=== PATIENT | male | born 1985 | race Caucasian/White ===

== ENCOUNTER 2020-08-07 12:13 | Day surgery (SDC) | payer OTHER ==
[~2020-08-07] VITALS: Ht 175.3 cm; Wt 92.5 kg
[~2020-08-07 12:13] MED LIST: NS 1,000 ML IV ONE; OMEP1CAP73 PO
[2020-08-07] MEDS ORDERED: fentaNYL 100 MCG/2 ML INJECTION (J3010) As Ordered ONE (13:28)
[2020-08-07] MEDS ORDERED: propofoL 200 MG/20 ML VIAL As Ordered ONE ×2 (13:29→13:55)
[2020-08-07] MEDS ORDERED: LIDOCAINE 2% 100MG/5ML SDV (FOR ANES.) As Ordered ONE (13:55)
--- NOTE | 2020-08-07 14:22 | ROOR ---
Patient Name: Musa Beyer Procedure Date: 08/07/2020 1:44 PM Date of : 1985 Age: 34 Room: [facility] Gender: Male Note Status: Finalized Procedure: Upper GI endoscopy Indications: Heartburn, Suspected gastro-esophageal reflux disease Providers: Slim Ramos MD Referring MD: AUDIE BRONSON MD Requesting Provider: Medicines: Monitored Anesthesia Care Complications: No immediate complications. Procedure: Pre-Anesthesia Assessment: - Prior to the procedure, a History and Physical was performed, and patient medications and allergies were reviewed. The patient is competent. The risks and benefits of the procedure and the sedation options and risks were discussed with the patient. All questions were answered and informed consent was obtained. Patient identification and proposed procedure were verified by the physician, the nurse and the anesthesiologist in the procedure room. Mental Status Examination: alert and oriented. Airway Examination: normal oropharyngeal airway and neck mobility. Respiratory Examination: clear to auscultation. CV Examination: normal. Prophylactic Antibiotics: The patient does not require prophylactic antibiotics. Prior Anticoagulants: The patient has taken no previous anticoagulant or antiplatelet agents. ASA Grade Assessment: II - A patient with mild systemic disease. After reviewing the risks and benefits, the patient was deemed in satisfactory condition to undergo the procedure. The anesthesia plan was to use monitored anesthesia care (MAC). Immediately prior to administration of medications, the patient was re-assessed for adequacy to receive sedatives. The heart rate, respiratory rate, oxygen saturations, blood pressure, adequacy of pulmonary ventilation, and response to care were monitored throughout the procedure. The physical status of the patient was re-assessed after the procedure. The Endoscope was introduced through the mouth, and advanced to the second part of duodenum. The upper GI endoscopy was accomplished without difficulty. The patient tolerated the procedure well. Findings: The examined esophagus was normal. The Z-line was regular and was found 42 cm from the incisors. Scattered mild inflammation characterized by erythema and granularity was found in the gastric antrum. Biopsies were taken with a cold forceps for Helicobacter pylori testing. Verification of patient identification for the specimen was done by the physician and nurse using the patient's name, date and medical record number. Estimated blood loss was minimal. The duodenal bulb and second portion of the duodenum were normal. The DAMNO capsule with delivery system was introduced through the mouth and advanced into the esophagus, such that the DAMON pH capsule was positioned 36 cm from the incisors, which was 6 cm proximal to the GE junction. Suction was applied to the well of the DAMON pH capsule to suck in the adjacent mucosa of the esophagus using the external vacuum pump set at a minimum vacuum pressure of 550 mmHg for 30 seconds. The DAMON pH capsule was then deployed by depressing the plunger on top of the handle to advance the locking pin into the mucosa, thereby attaching the capsule to the esophagus. The plunger was then rotated a quarter turn clockwise to release the capsule from the delivery system. The delivery system was then withdrawn. Endoscopy was utilized for probe placement and diagnostic evaluation. The scope was reinserted to evaluate placement of the DAMON capsule. Visualization showed the DAMON capsule to be in an appropriate position. Impression: - Normal esophagus. - Z-line regular, 42 cm from the incisors. - Gastritis. Biopsied. - Normal duodenal bulb and second portion of the duodenum. - The DAMON pH capsule was positioned 36 cm from the incisors, which was 6 cm proximal to the GE junction. Recommendation: - Patient has a contact number available for emergencies. The signs and symptoms of potential delayed complications were discussed with the patient. Return to normal activities tomorrow. Written discharge instructions were provided to the patient. - High fiber diet. - Continue present medications. - Await pathology results. - Follow an antireflux regimen. - Return to GI clinic in [facility] (address [address], [address], [place], [facility]) in 4 -- 6 weeks. Please call GI clinic @ [phone] for apppointment date and time. - Return to primary care physician. Procedure Code(s): --- Professional --- 94702, Esophagogastroduodenoscopy, flexible, transoral; with biopsy, single or multiple Diagnosis Code(s): --- Professional --- K29.70, Gastritis, unspecified, without bleeding R12, Heartburn CPT copyright 2019 [employer]. All rights reserved. The codes documented in this report are preliminary and upon precision agriculture technician review may be revised to meet current compliance requirements. Slim Ramos MD Slim Ramos MD 08/07/2020 2:21:53 PM Electronically signed by Slim Ramos MD Number of Addenda: 0 Note Initiated On: 08/07/2020 1:44 PM Estimated Blood Loss: Estimated blood loss was minimal.
[2020-08-07 14:45] VITALS: BP 125/71
== END 2020-08-07 15:04 | disposition home or self-care (01) ==
LOC: M OPP 12:13
PROVIDERS: ATTEND Internal Medicine Gastroenterology
DX: R12 Heartburn (principal); K92.0 Hematemesis; D13.1 Benign neoplasm of stomach; K29.70 Gastritis, unspecified, without bleeding; K21.9 Gastro-esophageal reflux disease without esophagitis; Z79.899 Other long term (current) drug therapy; Z80.8 Family history of malignant neoplasm of other organs or systems
CPT/HCPCS: 43239; 88305; J3010

== ENCOUNTER 2020-09-06 18:14 | Emergency (ER) | payer OTHER ==
[~2020-09-06] VITALS: Ht 175.3 cm; Wt 95.3 kg
[~2020-09-06 18:14] MED LIST changes: -NS 1,000 ML IV ONE
[2020-09-06] MEDS ORDERED: AMIT25TA17 PO (18:24)
[2020-09-06] MEDS ORDERED: OMEP-218 (18:24)
[2020-09-06] MEDS ORDERED: CARA1TAB6 PO (18:24)
--- NOTE | 2020-09-06 20:50 | REPVR ---
PROCEDURE INFORMATION: Exam: XR Left Elbow Exam date and time: 09/06/2020 6:40 PM Age: 34 years old Clinical indication: Other: Fall, injury; Additional info: Fall. Injury TECHNIQUE: Imaging protocol: XR Left elbow. Views: 3 or more views. COMPARISON: No relevant prior studies available. FINDINGS: Bones/joints: Normal. Soft tissues: Normal. IMPRESSION: No acute findings. Electronically signed by: Tomasz Hilliard On 09/06/2020 20:50:10 PM
[2020-09-06 21:05] VITALS: BP 138/90
== END 2020-09-06 21:08 | disposition home or self-care (01) ==
LOC: M ED 18:14
DX: S50.02XA Contusion of left elbow, initial encounter (principal); S60.512A Abrasion of left hand, initial encounter; W19.XXXA Unspecified fall, initial encounter; Y92.410 Unspecified street and highway as the place of occurrence of the external cause; Y93.51 Activity, roller skating (inline) and skateboarding; Y99.9 Unspecified external cause status; K21.9 Gastro-esophageal reflux disease without esophagitis

== ENCOUNTER 2020-11-02 16:45 | Emergency (ER) | payer OTHER ==
[~2020-11-02] VITALS: Ht 175.3 cm; Wt 93.6 kg
[~2020-11-02 16:45] MED LIST changes: +AMIT25TA17 PO; +CARA1TAB6 PO; +OMEP-218
--- NOTE | 2020-11-02 17:48 | REP ---
INDICATION: fall, injury, pain COMPARISON: 09/06/2020. TECHNIQUE: Five views left elbow. FINDINGS: There is a nondisplaced fracture of the distal 3rd of the humerus which extends through the intercondylar region into the elbow joint. There is nondisplaced fracture of the neck of the radius. There is a joint effusion. There is no dislocation. IMPRESSION: Nondisplaced fracture distal 3rd of humerus which extends into the elbow joint. Nondisplaced fracture neck of radius. <Electronically signed by Gary Vickers > 11/02/20 [id number]
[2020-11-02] MEDS ORDERED: MORPHINE 4 MG/ML 1ML VIAL/SYRINGE (J2270) IV ONE (18:00)
--- NOTE | 2020-11-02 18:38 | REP ---
INDICATION: trauma COMPARISON: None. TECHNIQUE: Three views left shoulder. FINDINGS: There is no evidence of acute fracture, dislocation, or intrinsic bone disease. IMPRESSION: No fracture or dislocation. <Electronically signed by Gary Vickers > 11/02/20 [id number]
--- NOTE | 2020-11-02 18:40 | REP ---
INDICATION: trauma COMPARISON: Left elbow series today. TECHNIQUE: AP and lateral left humerus. FINDINGS: There is nondisplaced somewhat comminuted fracture of the distal 3rd of the humerus. The fracture is vertical and extends through the intercondylar region into the elbow joint. The proximal humerus is intact. IMPRESSION: Nondisplaced fracture distal 3rd humerus extends into the elbow joint. <Electronically signed by Gary Vickers > 11/02/20 [id number]
--- NOTE | 2020-11-02 18:43 | REP ---
INDICATION: trauma COMPARISON: Elbow series today. TECHNIQUE: AP and lateral left forearm. FINDINGS: There is nondisplaced fracture of the neck of the proximal radius. No other acute fracture or dislocation is seen. IMPRESSION: Nondisplaced fracture neck of proximal radius. <Electronically signed by Gary Vickers > 11/02/20 [id number]
--- NOTE | 2020-11-02 18:45 | REP ---
INDICATION: trauma COMPARISON: None. TECHNIQUE: Four views left hand. FINDINGS: There is no evidence of acute fracture, dislocation, or intrinsic bone disease. IMPRESSION: No fracture or dislocation. <Electronically signed by Gary Vickers > 11/02/20 [id number]
--- NOTE | 2020-11-02 19:14 | REPVR ---
PROCEDURE INFORMATION: Exam: CT Cervical Spine Without Contrast Exam date and time: 11/02/2020 6:28 PM Age: 35 years old Clinical indication: Injury or trauma; Fall; Blunt trauma TECHNIQUE: Imaging protocol: Computed tomography images of the cervical spine without contrast. Radiation optimization: All CT scans at this facility use at least one of these dose optimization techniques: automated exposure control; mA and/or kV adjustment per patient size (includes targeted exams where dose is matched to clinical indication); or iterative reconstruction. COMPARISON: No relevant prior studies available. FINDINGS: Bones/joints: No acute fracture. Normal alignment. Discs/Spinal canal/Neural foramina: No significant disc protrusion. No severe spinal canal stenosis. No significant neural foraminal narrowing. Lungs: Lung apices are normal. Soft tissues: Unremarkable. IMPRESSION: No acute findings. Electronically signed by: Tomasz Hilliard On 11/02/2020 19:13:56 PM
--- NOTE | 2020-11-02 19:15 | REPVR ---
PROCEDURE INFORMATION: Exam: CT Head Without Contrast Exam date and time: 11/02/2020 6:28 PM Age: 35 years old Clinical indication: Injury or trauma; Fall; Blunt trauma (contusions or hematomas) TECHNIQUE: Imaging protocol: Computed tomography of the head without contrast. Radiation optimization: All CT scans at this facility use at least one of these dose optimization techniques: automated exposure control; mA and/or kV adjustment per patient size (includes targeted exams where dose is matched to clinical indication); or iterative reconstruction. COMPARISON: No relevant prior studies available. FINDINGS: Brain: Normal. No hemorrhage. Unremarkable white matter. No mass effect. Cerebral ventricles: No ventriculomegaly. Bones/joints: Unremarkable. No acute fracture. Paranasal sinuses: Visualized sinuses are unremarkable. No fluid levels. Mastoid air cells: Visualized mastoid air cells are well aerated. Soft tissues: Unremarkable. IMPRESSION: No acute intracranial abnormality. Electronically signed by: Tomasz Hilliard On 11/02/2020 19:15:25 PM
[2020-11-02] MEDS ORDERED: ONDANSETRON 4MG/2ML VIAL IV ONE ×2 (19:25→19:30)
--- NOTE | 2020-11-02 19:51 | REPVR ---
PROCEDURE INFORMATION: Exam: CT Left Upper Extremity Without Contrast, Elbow Exam date and time: 11/02/2020 7:22 PM Age: 35 years old Clinical indication: Injury or trauma; Fall; Blunt trauma (contusions or hematomas); Elbow; Left TECHNIQUE: Imaging protocol: CT of the Left upper extremity without contrast was performed. Exam focused on the elbow. Radiation optimization: All CT scans at this facility use at least one of these dose optimization techniques: automated exposure control; mA and/or kV adjustment per patient size (includes targeted exams where dose is matched to clinical indication); or iterative reconstruction. COMPARISON: CR Elbow, complete 11/02/2020 5:08 PM FINDINGS: Bones/joints: Vertical fracture of the distal humerus. Fracture extends to the trochlea articular surface. Soft tissues: Soft tissue swelling at the elbow. Elbow joint effusion. IMPRESSION: Vertical fracture of the distal humerus. Fracture extends to the trochlea articular surface. Electronically signed by: Tomasz Hilliard On 11/02/2020 19:51:28 PM
[2020-11-02] MEDS ORDERED: OXYCODONE/APAP 5MG/325MG(BULK FOR ED) 1 TABLET PO ONE (20:15)
[2020-11-02] MEDS ORDERED: PERC5TAB12 PO (20:20)
[2020-11-02 22:33] VITALS: BP 155/76
== END 2020-11-02 22:34 | disposition home or self-care (01) ==
LOC: M ED 16:45
DX: S42.402A Unspecified fracture of lower end of left humerus, initial encounter for closed fracture (principal); S52.135A Nondisplaced fracture of neck of left radius, initial encounter for closed fracture; W19.XXXA Unspecified fall, initial encounter; Y92.9 Unspecified place or not applicable; Y93.89 Activity, other specified; Y99.9 Unspecified external cause status; K21.9 Gastro-esophageal reflux disease without esophagitis; Z79.899 Other long term (current) drug therapy
CPT/HCPCS: 70450; 72125; 73030; 73060; 73080; 73090; 73130; 73200; 93041; 94760; 96374; 96375; 99284; J2270; J2405

== ENCOUNTER → 2021-01-08 | Outpatient (CLI) | payer OTHER ==
[~2021-01-08] MED LIST changes: +PERC5TAB12 PO
== END ==
LOC: M LAB 09:52
PROVIDERS: ATTEND Internal Medicine Gastroenterology
DX: K58.0 Irritable bowel syndrome with diarrhea (principal)

== ENCOUNTER → 2021-01-15 | Outpatient (REF) | payer OTHER | LOC: M LAB REF 15:45 | PROVIDERS: ATTEND Internal Medicine Gastroenterology | DX: K58.0 Irritable bowel syndrome with diarrhea (principal) ==

== ENCOUNTER → 2021-10-15 | Outpatient (CLI) | payer OTHER ==
[~2021-10-15] MED LIST changes: +OMEP-173; -OMEP-218
== END ==
LOC: M SOG 07:49
PROVIDERS: ATTEND Physician Assistant
DX: M25.522 Pain in left elbow (principal); Z87.81 Personal history of (healed) traumatic fracture

== ENCOUNTER 2021-11-25 07:14 | Day surgery (SDC) | payer OTHER ==
[~2021-11-25] VITALS: Ht 175.3 cm; Wt 93.9 kg
[~2021-11-25 07:14] MED LIST changes: -OMEP-173; +OMEP-173 PO; +ceFAZolin SOD 2 GM in IV 1 EA IV ONE
[2021-11-25] MEDS ORDERED: LR 1,000 ML IV SCH ×2 (07:35→11:10)
[2021-11-25] MEDS ORDERED: propofoL 200 MG/20 ML VIAL As Ordered ONE (08:22)
[2021-11-25] MEDS ORDERED: LIDOCAINE 2% 100MG/5ML SDV (FOR ANES.) As Ordered ONE (08:22)
[2021-11-25] MEDS ORDERED: MIDAZOLAM INJ 2MG/2ML VIAL (J2250 PER 1MG) As Ordered ONE (08:22)
[2021-11-25] MEDS ORDERED: ONDANSETRON 4MG/2ML VIAL As Ordered ONE (08:22)
[2021-11-25] MEDS ORDERED: fentaNYL 100 MCG/2 ML INJECTION As Ordered ONE ×2 (08:22→09:16)
[2021-11-25] MEDS ORDERED: dexameTHASONE 4 MG/ML 1ML VIAL (J1100 PER 1MG) As Ordered ONE (08:22)
[2021-11-25] MEDS ORDERED: KETOROLAC 60MG 2ML VIAL As Ordered ONE (08:27)
[2021-11-25] MEDS ORDERED: BUPIVACAINE HCL 0.25% 30ML VIAL As Ordered ONE (09:15)
[2021-11-25] MEDS ORDERED: BACITRACIN OINTMENT 30GM TUBE As Ordered ONE (09:15)
[2021-11-25] MEDS ORDERED: ROCURONIUM BROMIDE 50 MG/5 ML VIAL As Ordered ONE (09:16)
[2021-11-25] MEDS ORDERED: BUPIVACAINE HCL 0.5% 30ML VIAL As Ordered ONE (09:55)
[2021-11-25] MEDS ORDERED: ACETAMINOPHEN 1000MG 100ML IV BTL (OFIRMEV) (J0131 PER 10MG) As Ordered ONE (10:15)
[2021-11-25] MEDS ORDERED: SUGAMMADEX SODIUM 500 MG/5 ML VIAL (BRIDION) As Ordered ONE (10:15)
[2021-11-25] MEDS ORDERED: METOCLOPRAMIDE INJ 10MG/2ML VIAL (J2765 PER 1) As Ordered ONE (10:37)
[2021-11-25] MEDS ORDERED: fentaNYL 100 MCG/2 ML INJECTION IV PRN (11:10)
[2021-11-25] MEDS ORDERED: ONDANSETRON 4MG/2ML VIAL IV PRN (11:10)
[2021-11-25] MEDS ORDERED: PERC5TAB12 PO (11:32)
[2021-11-25] MEDS: oxyCODONE 5MG TAB PO PRN ×2 (11:46→12:15)
[2021-11-25 13:55] VITALS: BP 118/75
== END 2021-11-25 14:40 | disposition home or self-care (01) ==
LOC: M SDC 07:14
PROVIDERS: ATTEND Orthopaedic Surgery Hand Surgery
DX: G56.22 Lesion of ulnar nerve, left upper limb (principal); M25.522 Pain in left elbow; T84.84XA Pain due to internal orthopedic prosthetic devices, implants and grafts, initial encounter; K21.9 Gastro-esophageal reflux disease without esophagitis; G43.909 Migraine, unspecified, not intractable, without status migrainosus; Z79.899 Other long term (current) drug therapy
CPT/HCPCS: 20680; 64718; 76000; C1762; J0131; J0690; J1100; J1885; J2250; J2405; J2765; J3010

== ENCOUNTER 2022-09-29 06:06 | Day surgery (SDC) | payer OTHER ==
[~2022-09-29] VITALS: Ht 175.3 cm; Wt 95.3 kg
[~2022-09-29 06:06] MED LIST changes: +SILD100T PO; -ceFAZolin SOD 2 GM in IV 1 EA IV ONE
[2022-09-29] MEDS ORDERED: LR 1,000 ML IV SCH ×2 (06:25→09:40)
[2022-09-29] MEDS ORDERED: SCOPOLAMINE 1MG TRANSDERMAL PATCH TOP SCH (06:55)
[2022-09-29] MEDS ORDERED: MIDAZOLAM INJ 2MG/2ML VIAL As Ordered ONE (06:59)
[2022-09-29] MEDS ORDERED: KETAMINE HCL 200MG/20ML VIAL As Ordered ONE ×3 (06:59→09:07)
[2022-09-29] MEDS ORDERED: fentaNYL 100 MCG/2 ML INJECTION As Ordered ONE (06:59)
[2022-09-29] MEDS ORDERED: GLYCOPYRROLATE INJ 0.2 MG/ML 2 ML VIAL As Ordered ONE (07:00)
[2022-09-29] MEDS ORDERED: KETOROLAC 60MG 2ML VIAL As Ordered ONE (07:00)
[2022-09-29] MEDS ORDERED: ONDANSETRON 4MG 2ML VIAL As Ordered ONE (07:00)
[2022-09-29] MEDS ORDERED: LIDOCAINE 2% 100MG/5ML SDV (FOR ANES.) As Ordered ONE (07:00)
[2022-09-29] MEDS ORDERED: propofoL 200 MG/20 ML VIAL As Ordered ONE ×3 (07:00→09:26)
[2022-09-29] MEDS ORDERED: ACETAMINOPHEN 1000MG 100ML IV BAG As Ordered ONE (07:09)
[2022-09-29] MEDS ORDERED: BUPIVACAINE HCL 0.25% 30ML VIAL As Ordered ONE (07:13)
[2022-09-29] MEDS ORDERED: METOCLOPRAMIDE INJ 10MG/2ML VIAL As Ordered ONE (07:32)
[2022-09-29] MEDS ORDERED: ceFAZolin 2 GM/D5W 50 ML IV BAG As Ordered ONE (07:32)
[2022-09-29] MEDS ORDERED: oxyCODONE 5MG TAB PO PRN (09:40)
[2022-09-29] MEDS ORDERED: fentaNYL 100 MCG/2 ML INJECTION IV PRN (09:40)
[2022-09-29] MEDS ORDERED: ONDANSETRON 4MG 2ML VIAL IV PRN (09:40)
[2022-09-29] MEDS ORDERED: PERC5TAB12 PO (10:07)
[2022-09-29] MEDS: HYDROMORPHONE HCL 0.5 MG/ 0.5 ML SYRINGE IV PRN ×2 (10:40→10:45)
[2022-09-29 11:49] VITALS: BP 130/84
== END 2022-09-29 12:30 | disposition home or self-care (01) ==
LOC: M SDC 06:06
PROVIDERS: ATTEND Orthopaedic Surgery Hand Surgery
DX: G56.22 Lesion of ulnar nerve, left upper limb (principal); M25.322 Other instability, left elbow; K21.9 Gastro-esophageal reflux disease without esophagitis; J30.2 Other seasonal allergic rhinitis; Z79.899 Other long term (current) drug therapy; G43.909 Migraine, unspecified, not intractable, without status migrainosus
CPT/HCPCS: 64718; J0131; J0690; J1100; J1170; J1885; J2250; J2405; J2765; J3010; S0020